=== PATIENT | male | born 1950 | race Caucasian/White ===

== ENCOUNTER → 2016-03-13 | Outpatient (REF) | payer BC | LOC: M SFHCPLAZ 13:33 | PROVIDERS: ATTEND Internal Medicine Infectious Disease | DX: A49.02 Methicillin resistant Staphylococcus aureus infection, unspecified site (principal) ==

== ENCOUNTER → 2016-04-23 | Outpatient (REF) | payer BC | LOC: M SFHCPLAZ 13:15 | PROVIDERS: ATTEND Internal Medicine Infectious Disease | DX: A49.02 Methicillin resistant Staphylococcus aureus infection, unspecified site (principal) ==

== ENCOUNTER 2018-08-03 09:47 | Day surgery (SDC) | payer MEDICARE, BC ==
[~2018-08-03] VITALS: Ht 177.8 cm; Wt 88.5 kg
[~2018-08-03 09:47] MED LIST: ASPI81TA85 PO; ATOR1TAB19; NS 1,000 ML IV ONE; OMEP-218; ZYLO300T6
[2018-08-03] MEDS ORDERED: LIDOCAINE 2% INJ 100 MG/5 ML SDV (FOR ANES.) As Ordered ONE (10:22)
[2018-08-03] MEDS ORDERED: PROPOFOL 200 MG/20 ML VIAL As Ordered ONE ×2 (10:22→12:19)
--- NOTE | 2018-08-03 12:39 | ROOR ---
Patient Name: Ric Ayoub Procedure Date: 08/03/2018 11:45 AM Date of : 1950 Age: 68 Room: [facility] Gender: Male Note Status: Finalized Procedure: Upper GI endoscopy Indications: Surveillance for malignancy due to personal history of Chi's esophagus, Dysphagia Providers: eKn Valera MD Referring MD: JUVE MCKEON MD Requesting Provider: Medicines: Monitored Anesthesia Care Complications: No immediate complications. Procedure: Pre-Anesthesia Assessment: - Prior to the procedure, a History and Physical was performed, and patient medications and allergies were reviewed. The patient is competent. The risks and benefits of the procedure and the sedation options and risks were discussed with the patient. All questions were answered and informed consent was obtained. Patient identification and proposed procedure were verified by the physician, the nurse and the anesthesiologist in the procedure room. Mental Status Examination: alert and oriented. Airway Examination: normal oropharyngeal airway and neck mobility. Respiratory Examination: clear to auscultation. CV Examination: normal. Prophylactic Antibiotics: The patient does not require prophylactic antibiotics. Prior Anticoagulants: The patient has taken no previous anticoagulant or antiplatelet agents. ASA Grade Assessment: II - A patient with mild systemic disease. After reviewing the risks and benefits, the patient was deemed in satisfactory condition to undergo the procedure. The anesthesia plan was to use monitored anesthesia care (MAC). Immediately prior to administration of medications, the patient was re-assessed for adequacy to receive sedatives. The heart rate, respiratory rate, oxygen saturations, blood pressure, adequacy of pulmonary ventilation, and response to care were monitored throughout the procedure. The physical status of the patient was re-assessed after the procedure. The Endoscope was introduced through the mouth, and advanced to the second part of duodenum. The upper GI endoscopy was accomplished without difficulty. The patient tolerated the procedure well. Findings: The Z-line was irregular and was found 39 cm from the incisors. Scattered islands of salmon-colored mucosa were present from 38 to 39 cm. No other visible abnormalities were present. The maximum longitudinal extent of these esophageal mucosal changes was 1 cm in length. Biopsies were taken with a cold forceps for histology. Biopsies were obtained from the proximal and distal esophagus with cold forceps for histology of suspected eosinophilic esophagitis. Verification of patient identification for the specimen was done by the physician and nurse using the patient's name, date and medical record number. Estimated blood loss was minimal. Patchy mild inflammation characterized by erythema and granularity was found in the gastric antrum. Biopsies were taken with a cold forceps for Helicobacter pylori testing. The duodenal bulb and second portion of the duodenum were normal. Impression: - Z-line irregular, 39 cm from the incisors. - Brogan-colored mucosa suspicious for short-segment Chi's esophagus. Biopsied. - Gastritis. Biopsied. - Normal duodenal bulb and second portion of the duodenum. Recommendation: - Patient has a contact number available for emergencies. The signs and symptoms of potential delayed complications were discussed with the patient. Return to normal activities tomorrow. Written discharge instructions were provided to the patient. - Resume previous diet. - Continue present medications. 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 - Follow an antireflux regimen. - Await pathology results. - Repeat upper endoscopy in 3 years for surveillance based on pathology results. - Return to GI clinic in 3 years. - Return to primary care physician. Ken Valera MD Ken Valera MD 08/03/2018 12:38:53 PM Electronically signed by Ken Valera MD Number of Addenda: 0 Note Initiated On: 08/03/2018 11:45 AM Estimated Blood Loss: Estimated blood loss was minimal.
--- NOTE | 2018-08-03 12:42 | ROOR ---
Patient Name: Ric Ayoub Procedure Date: 08/03/2018 11:45 AM Date of : 1950 Age: 68 Room: [facility] Gender: Male Note Status: Finalized Procedure: Colonoscopy Indications: Screening for colorectal malignant neoplasm Providers: Ken Valera MD Referring MD: JUVE MCKEON MD Requesting Provider: Medicines: Monitored Anesthesia Care Complications: No immediate complications. Procedure: Pre-Anesthesia Assessment: - Prior to the procedure, a History and Physical was performed, and patient medications and allergies were reviewed. The patient is competent. The risks and benefits of the procedure and the sedation options and risks were discussed with the patient. All questions were answered and informed consent was obtained. Patient identification and proposed procedure were verified by the physician, the nurse and the anesthesiologist in the procedure room. Mental Status Examination: alert and oriented. Airway Examination: normal oropharyngeal airway and neck mobility. Respiratory Examination: clear to auscultation. CV Examination: normal. Prophylactic Antibiotics: The patient does not require prophylactic antibiotics. Prior Anticoagulants: The patient has taken no previous anticoagulant or antiplatelet agents. ASA Grade Assessment: II - A patient with mild systemic disease. After reviewing the risks and benefits, the patient was deemed in satisfactory condition to undergo the procedure. The anesthesia plan was to use monitored anesthesia care (MAC). Immediately prior to administration of medications, the patient was re-assessed for adequacy to receive sedatives. The heart rate, respiratory rate, oxygen saturations, blood pressure, adequacy of pulmonary ventilation, and response to care were monitored throughout the procedure. The physical status of the patient was re-assessed after the procedure. The Colonoscope was introduced through the anus and advanced to the terminal ileum, with identification of the appendiceal orifice and IC valve. The colonoscopy was performed without difficulty. The patient tolerated the procedure well. The quality of the bowel preparation was good. The terminal ileum, ileocecal valve, appendiceal orifice, and rectum were photographed. Scope insertion time was 4 minutes. Scope withdrawal time was 10 minutes. The total duration of the procedure was 14 minutes. Findings: The perianal and digital rectal examinations were normal. The terminal ileum appeared normal. Two sessile polyps were found in the ascending colon. The polyps were 4 to 5 mm in size. These polyps were removed with a cold snare. Resection and retrieval were complete. Verification of patient identification for the specimen was done by the physician and nurse using the patient's name, date and medical record number. Estimated blood loss was minimal. A 8 mm polyp was found in the sigmoid colon. The polyp was sessile. The polyp was removed with a cold snare. Resection and retrieval were complete. Multiple small and large-mouthed diverticula were found from sigmoid to ascending colon. There was no evidence of diverticular bleeding. Non-bleeding external and internal hemorrhoids were found during retroflexion. The hemorrhoids were medium-sized. Impression: - The examined portion of the ileum was normal. - Two 4 to 5 mm polyps in the ascending colon, removed with a cold snare. Resected and retrieved. - One 8 mm polyp in the sigmoid colon, removed with a cold snare. Resected and retrieved. - Moderate diverticulosis from sigmoid to ascending colon. There was no evidence of diverticular bleeding. - Non-bleeding external and internal hemorrhoids. Recommendation: - Patient has a contact number available for emergencies. The signs and symptoms of potential delayed complications were discussed with the patient. Return to normal activities tomorrow. Written discharge instructions were provided to the patient. - High fiber diet. - Continue present medications. - Await pathology results. - Repeat colonoscopy in 5-10 years for surveillance based on pathology results. - Return to primary care physician. - Based on the biopsy results you will receive a phone call from GI clinic in 2-3 weeks to review the pathology results AND/OR your results will be faxed to your Primary care physician. Ken Valera MD Ken Valera MD 08/03/2018 12:42:08 PM Electronically signed by Ken Valera MD Number of Addenda: 0 Note Initiated On: 08/03/2018 11:45 AM Estimated Blood Loss: Estimated blood loss was minimal.
[2018-08-03 13:06] VITALS: BP 122/67
== END 2018-08-03 13:08 | disposition home or self-care (01) ==
LOC: M OPP 09:47
PROVIDERS: ATTEND Internal Medicine Gastroenterology
DX: Z12.11 Encounter for screening for malignant neoplasm of colon (principal); K64.8 Other hemorrhoids; D12.2 Benign neoplasm of ascending colon; D12.5 Benign neoplasm of sigmoid colon; K57.30 Diverticulosis of large intestine without perforation or abscess without bleeding; K22.8 Other specified diseases of esophagus; K29.70 Gastritis, unspecified, without bleeding; K22.70 Barrett's esophagus without dysplasia; R13.10 Dysphagia, unspecified; Z79.82 Long term (current) use of aspirin; Z79.899 Other long term (current) drug therapy

== ENCOUNTER 2021-12-03 09:13 | Day surgery (SDC) | payer MEDICARE, BC ==
[~2021-12-03] VITALS: Ht 177.8 cm; Wt 88.5 kg
[~2021-12-03 09:13] MED LIST changes: +ALLO300T2 PO; +AMLO1TAB24 PO; -ASPI81TA85 PO; +ASPI81TA86 PO; +METF-838 PO; +OMEP-173; -OMEP-218; +RAMI1CAP24 PO
[2021-12-03] MEDS ORDERED: LIDOCAINE 2% 100MG/5ML SDV (FOR ANES.) As Ordered ONE (10:44)
[2021-12-03] MEDS ORDERED: propofoL 200 MG/20 ML VIAL As Ordered ONE (10:44)
[2021-12-03 11:20] VITALS: BP 129/81
== END 2021-12-03 11:29 | disposition home or self-care (01) ==
LOC: M OPP 09:13
PROVIDERS: ATTEND Internal Medicine Gastroenterology
DX: K21.00 Gastro-esophageal reflux disease with esophagitis, without bleeding (principal); K31.89 Other diseases of stomach and duodenum; K44.9 Diaphragmatic hernia without obstruction or gangrene; R13.10 Dysphagia, unspecified; Z79.02 Long term (current) use of antithrombotics/antiplatelets; Z79.84 Long term (current) use of oral hypoglycemic drugs; Z79.899 Other long term (current) drug therapy; I10 Essential (primary) hypertension; E11.9 Type 2 diabetes mellitus without complications; Z85.01 Personal history of malignant neoplasm of esophagus; Z86.14 Personal history of Methicillin resistant Staphylococcus aureus infection; Z80.6 Family history of leukemia; Z80.8 Family history of malignant neoplasm of other organs or systems